=== PATIENT | male | born 1955 | race Caucasian/White ===

== ENCOUNTER 2017-12-07 08:40 | Day surgery (SDC) | payer MEDICARE ==
[~2017-12-07] VITALS: Ht 177.8 cm; Wt 132.9 kg
[~2017-12-07 08:40] MED LIST: ALLO100 PO; AMLO10 PO; ATOR20TA PO; B COTAB3 PO; BACL20TA PO; CLOP75 PO; CORE25TA PO; CYCL-36 PO; DOXA1 PO; FISH1200 PO; FURO1TAB93 PO; GLIM1 PO; HYDR-3533 PO; LOSA100T PO; NORC10TA2 PO; NOVONP2 SQ; NOVORP2 SQ; PRED5TAB PO; PRIL40CA PO; REST30CA PO; SM F PO; VITA-13 PO
[2017-12-07] MEDS ORDERED: IOHEXOL 350 MG/ML 100 ML BTL (for Cath Lab) OTHER ONE (08:41)
[2017-12-07] MEDS ORDERED: SODIUM CHLORIDE 0.9% FLUSH 10 ML FLUSH IV FLUSH PRN ×2 (09:30)
[2017-12-07 09:58] VITALS: BP 188/82; PULSE 78; RESP 18; TEMP 98.1; O2SAT 94
[2017-12-07] MEDS ORDERED: PLAV75TA29 PO (10:27)
[2017-12-07] MEDS ORDERED: LANTUS2P SQ (10:27)
[2017-12-07] MEDS ORDERED: CORE25TA PO (10:27)
[2017-12-07] MEDS ORDERED: FURO20TA PO (10:27)
[2017-12-07] MEDS ORDERED: DOXA1TAB43 PO (10:27)
[2017-12-07] MEDS ORDERED: NITR0.4S SL (10:27)
[2017-12-07] MEDS ORDERED: GLYB5TAB3 PO (10:27)
[2017-12-07] MEDS ORDERED: ATOR40TA16 PO (10:27)
[2017-12-07 10:37] LABS: BASOPHIL # 0.1 TH/MM3 (0-0.2); BASOPHIL % 0.8 % (0.0-2.0); EOSINOPHIL # 0.9 TH/MM3 (0-0.4); HEMATOCRIT 46.8 % (39.0-51.0); HEMOGLOBIN 15.2 GM/DL (13.0-17.0); LYMPH % 15.8 % (9.0-44.0); MEAN CELL VOLUME 83.9 FL (80.0-100.0); MEAN CORPUSCULAR HEMOGLOBIN 27.3 PG (27.0-34.0); MEAN CORPUSCULAR HGB CONC 32.6 % (32.0-36.0); MEAN PLATELET VOLUME 10.8 FL (7.0-11.0); MONO % 8.3 % (0.0-8.0); MONOCYTE # 0.6 TH/MM3 (0-0.9); NEUT % 61.1 % (16.0-70.0); PLATELET COUNT 76 TH/MM3 (150-450); RED BLOOD COUNT 5.58 MIL/MM3 (4.50-5.90); RED CELL DISTRIBUTION WIDTH 17.5 % (11.6-17.2); WHITE BLOOD COUNT 6.6 TH/MM3 (4.0-11.0)
[2017-12-07 10:44] LABS: PROTHROMBIN TIME - PATIENT 10.3 SEC (9.8-11.6)
[2017-12-07 10:58] LABS: BICARBONATE 30.4 MEQ/L (21.0-32.0); CALCIUM 9.6 MG/DL (8.5-10.1); CREATININE 1.51 MG/DL (0.60-1.30)
[2017-12-07] MEDS ORDERED: HEPARIN SODIUM - IV 10,000 UNITS/10 ML VIAL ONE (11:17)
[2017-12-07] MEDS ORDERED: NITROGLYCERIN INJ 5 ML ONE (11:17)
[2017-12-07] MEDS ORDERED: MIDAZOLAM HCL 2 MG/2 ML VIAL ONE (11:17)
[2017-12-07] MEDS ORDERED: HEPARIN-NS/PF FLUSH BAG 2,000 ML IV FLUSH ONE (11:17)
--- NOTE | 2017-12-07 11:49 | EKG ---
Date Performed: 12/07/2017 Time Performed: 10:34:42 PTAGE: 62 years EKG: Sinus rhythm . Inferior infarct - age undetermined Abnormal ECG PREVIOUS TRACING : 11/19/2015 19.51 DOCTOR: Julio Rosenberg Interpretating Date/Time 12/07/2017 11:48:53
[2017-12-07] MEDS ORDERED: ASPIRIN 81 MG CHEW TAB ONE (12:47)
[2017-12-07] MEDS ORDERED: CLOPIDOGREL 75 MG TAB ONE (12:47)
[2017-12-07] MEDS ORDERED: SODIUM CHLOR 0.9% 1000 ML INJ 1,000 ML IV SCH (13:03)
[2017-12-07] MEDS ORDERED: MISC INFORMATION XX ONE (13:15)
[2017-12-07] MEDS ORDERED: MORPHINE SULFATE 4 MG/ML INJ IV PUSH PRN (13:15)
[2017-12-07] MEDS ORDERED: oxyCODONE/ACETAMINOPHEN 5 MG/325 MG TAB PO PRN (13:15)
[2017-12-07] MEDS ORDERED: ACETAMINOPHEN 325 MG TAB PO PRN (13:15)
[2017-12-07 20:00] VITALS: BP 165/79; PULSE 83; RESP 20; TEMP 98.2; O2SAT 94
[2017-12-07] MEDS: oxyCODONE/ACETAMINOPHEN 10 MG/325 MG TAB PO PRN (20:20)
[2017-12-07 21:00] VITALS: PULSE 86
[2017-12-07] MEDS ORDERED: ATORVASTATIN 40 MG TAB PO SCH (21:00)
[2017-12-07] MEDS ORDERED: INSULIN DETEMIR 100 UNITS/ML VIAL SQ SCH (21:00)
[2017-12-07] MEDS: CARVEDILOL 12.5 MG TAB PO SCH (21:00)
[2017-12-07 21:07] VITALS: O2SAT 94
[2017-12-07] MEDS: FUROSEMIDE 20 MG TAB PO SCH (21:48)
[2017-12-07 22:00] VITALS: PULSE 86
[2017-12-07 23:00] VITALS: BP 145/72; PULSE 88; RESP 20; TEMP 98.7; O2SAT 95
[2017-12-08] VITALS (9 sets, daily range): BP systolic 150–164; BP diastolic 70–79; PULSE 74–82; RESP 18–20; TEMP 98.4–98.8; O2SAT 92–98
[2017-12-08] MEDS: oxyCODONE/ACETAMINOPHEN 10 MG/325 MG TAB PO PRN (00:39)
--- NOTE | 2017-12-08 00:49 | MA ---
cc: Can Pérez DO DATE: 12/07/2017 DATE OF PROCEDURE: 12/07/2017. PROCEDURE: Bilateral peripheral angiogram, moderate sedation 56 minutes, third order angiogram, Sherwood stent (8 x 20) to the right external iliac. PREPROCEDURE DIAGNOSES: Bilateral claudication, left heel ulcer which has since healed after skin grafting, right venous ulcer, known peripheral artery disease, abnormal ankle-brachial index ([place]). 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 MEDICATIONS: Versed 1.5 mg, fentanyl 75 mcg and heparin 7000 units, aspirin 81 mg, Plavix 75 mg. CONTRAST USED: 70 mL. FLUOROSCOPY: 7.2 minutes. MODERATE SEDATION: 56 minutes. FRAILTY SCORE: 3. ESTIMATED BLOOD LOSS: 10 mL. PROCEDURAL SUMMARY: Ellis Barakat is a pleasant 62-year-old male who sees my partner, Dr. Rice, and was found to have abnormal ABIs as well as previously having a left heel ulcer. Since being evaluated by Dr. Rice and Dr. Srinivasan, he has since undergone skin grafting of his left heel and this has since healed. He was recommended a peripheral angiogram. Risks, benefits and alternatives were explained to him and he consented to such. He was brought to the lab and prepped in the usual sterile fashion. The right femoral artery was accessed using a modified Seldinger technique and placement of a 5-[place] sheath. This was easily aspirated and flushed. A runoff was done of the right lower extremity with DSA of the distal lower extremity. A Glidewire with an Omni Flush catheter were used to cross over the bifurcation, and this was used for selective angiography of the left lower extremity using contrast runoff. DSA was done of the left distal lower extremity, and as there was some difficulty evaluating, the Omni Flush was advanced into the left SFA for better angiogram. Omni Flush and wire were removed. As there was concern for stenosis or possible dissection of the right external iliac, a J-wire was advanced up the aorta and a straight catheter was placed in the proximal portion of the iliac. This was pulled back across the iliac, showing a significant gradient of 25-30 mmHg. It was felt that this needed to be intervened on, and so a J-wire was placed back up the aorta. The 5-[place] sheath was changed out for a 6-[place] sheath. Heparin was given as an anticoagulant. A Sherwood stent (8 x 20) was placed over the lesion and inflated. This was postdilated with the stent balloon. Final angiogram shows a well-opposed stent with no perforations or dissections. Sheath was sutured in place, with a plan to remove once ACT values were appropriate. FINDINGS: Right lower extremity: Right external iliac has possible calcified stenosis with possible dissection. Distal to this, the common femoral artery and SFA have mild luminal irregularities. The popliteal artery is patent. Distally, the right posterior tibial artery is occluded at the proximal portion. The right anterior tibial has good runoff to the foot. The right peroneal artery has good runoff to the ankle. There is no collateralization to the right posterior tibial artery. Left lower extremity: Left iliac, common femoral artery and superficial femoral artery are patent, with minimal disease. Distally, the left posterior tibial artery is occluded at its origin. The left anterior tibial is a large vessel with runoff to the foot. The left peroneal artery appears to occlude in the proximal to mid portion. IMPRESSION: 1. Severe peripheral artery disease distally with 2-vessel runoff to the right foot and 1-vessel runoff to the left foot as above. 2. Right external iliac stenosis versus dissection, status post Sherwood stent (8 x 20). 3. Left heel ulcer, which has since healed after skin grafting. 4. Right lower extremity venous stasis ulcer. RECOMMENDATIONS: 1. Mr. Blade Barakat underwent peripheral angiogram and appears to have a 2-vessel runoff to the right lower extremity and 1-vessel runoff to the left lower extremity. 2. As there was significant concern for stenosis versus dissection of the right external iliac artery, he underwent intervention with a Sherwood stent (8 x 20). He will be recommended aspirin and Plavix therapy. He previously had a GI bleed, but at that time was on aspirin, Plavix and Coumadin therapy. If there is any concern for bleeding, then aspirin can be stopped and he can continue on Plavix therapy as he was on before: 3. Overall, he does have significant peripheral vascular disease distally with 1-vessel runoff to the left lower extremity. His previous left heel ulcer has since healed, and I do not believe that there is intervention possible to the left posterior tibial artery to help with blood flow to this area, as it is occluded ostially with no collateralization. 4. Due to his significant chronic kidney disease, he will be watched overnight, and if stable, in the morning discharged home for followup with Dr. Rice. Thank you for allowing me to see Ellis Barakat. If there are any questions, please do not hesitate to call. DO DEYA RobersonP/SM , 11:50 PM , 12:48 AM
[2017-12-08 05:02] LABS: AUTOMATED NEUTROPHIL # 4.2 TH/MM3 (1.8-7.7); BASOPHIL # 0.1 TH/MM3 (0-0.2); BASOPHIL % 0.9 % (0.0-2.0); EOSINOPHIL # 0.8 TH/MM3 (0-0.4); HEMATOCRIT 45.8 % (39.0-51.0); LYMPH % 17.5 % (9.0-44.0); LYMPHOCYTE # 1.2 TH/MM3 (1.0-4.8); MEAN CELL VOLUME 83.9 FL (80.0-100.0); MEAN CORPUSCULAR HEMOGLOBIN 27.5 PG (27.0-34.0); MEAN CORPUSCULAR HGB CONC 32.8 % (32.0-36.0); MONOCYTE # 0.6 TH/MM3 (0-0.9); NEUT % 60.6 % (16.0-70.0); PLATELET COUNT 74 TH/MM3 (150-450); RED BLOOD COUNT 5.46 MIL/MM3 (4.50-5.90); RED CELL DISTRIBUTION WIDTH 18.1 % (11.6-17.2); WHITE BLOOD COUNT 6.9 TH/MM3 (4.0-11.0)
[2017-12-08 05:11] LABS: BICARBONATE 32.1 MEQ/L (21.0-32.0); CALCIUM 8.9 MG/DL (8.5-10.1); CREATININE 1.56 MG/DL (0.60-1.30)
[2017-12-08] MEDS ORDERED: glyBURIDE 5 MG TAB PO SCH (09:00)
[2017-12-08] MEDS ORDERED: CLOPIDOGREL 75 MG TAB PO SCH (09:00)
[2017-12-08] MEDS ORDERED: ASPIRIN 81 MG CHEW TAB PO SCH (09:00)
[2017-12-08] MEDS ORDERED: DOXAZOSIN MESYLATE 4 MG TAB PO SCH (09:00)
[2017-12-08] MEDS: CARVEDILOL 12.5 MG TAB PO SCH (09:58)
[2017-12-08] MEDS: FUROSEMIDE 20 MG TAB PO SCH (09:59)
[2017-12-08] MEDS ORDERED: ASPI81 PO (12:03)
--- NOTE | 2017-12-08 17:57 | PD.CARD.PN ---
Subjective Subjective Remarks Patient was seen earlier today, late entry note Doing well, up to the chair Legs feel good, no pain Objective Vital Signs / I&O Vital Signs Date Time Temp Pulse Resp B/P (MAP) Pulse Ox O2 Delivery O2 Flow Rate FiO2 12/08/17 11:30 82 12/08/17 11:30 98.5 82 18 150/70 (96) 92 12/08/17 08:00 98.8 78 18 164/79 (107) 92 12/08/17 08:00 78 12/08/17 06:00 75 12/08/17 05:00 76 12/08/17 04:00 74 12/08/17 03:00 79 12/08/17 03:00 98.4 79 20 156/74 (101) 98 12/08/17 02:00 82 12/08/17 01:39 20 12/08/17 01:00 82 12/08/17 00:00 82 12/07/17 23:00 88 12/07/17 23:00 98.7 88 20 145/72 (96) 95 12/07/17 22:00 86 12/07/17 21:07 94 Nasal Cannula 2.00 12/07/17 21:00 86 12/07/17 20:00 83 12/07/17 20:00 98.2 83 20 165/79 (107) 94 12/07/17 20:00 83 I/O 12/07/17 12/07/17 12/07/17 12/08/17 12/08/17 12/08/17 06:59 14:59 22:59 06:59 14:59 22:59 Intake Total 240 ml Output Total 1000 ml Balance -760 ml Intake Oral 240 ml Output Urine Total 1000 ml Physical Exam GENERAL: NAD, AAOx3 SKIN: Warm and dry. HEAD: Atraumatic. Normocephalic. EYES: Pupils equal and round. No scleral icterus. No injection or drainage. ENT: No nasal bleeding or discharge. Mucous membranes pink and moist. NECK: Trachea midline. No JVD. CARDIOVASCULAR: Regular rate and rhythm. RESPIRATORY: No accessory muscle use. Clear to auscultation. Breath sounds equal bilaterally. GASTROINTESTINAL: Abdomen soft, non-tender, nondistended. Hepatic and splenic margins not palpable. MUSCULOSKELETAL: Extremities without clubbing, cyanosis, or edema. No obvious deformities. Right femoral no hematoma, distal pulses diminished but palpable NEUROLOGICAL: Awake and alert. No obvious cranial nerve deficits. Motor grossly within normal limits. Five out of 5 muscle strength in the arms and legs. Normal speech. PSYCHIATRIC: Appropriate mood and affect; insight and judgment normal. Laboratory Laboratory Tests Test 12/08/17 04:21 White Blood Count 6.9 TH/MM3 Red Blood Count 5.46 MIL/MM3 Hemoglobin 15.0 GM/DL Hematocrit 45.8 % Mean Corpuscular Volume 83.9 FL Mean Corpuscular Hemoglobin 27.5 PG Mean Corpuscular Hemoglobin Concent 32.8 % Red Cell Distribution Width 18.1 % Platelet Count 74 TH/MM3 Mean Platelet Volume 10.0 FL Neutrophils (%) (Auto) 60.6 % Lymphocytes (%) (Auto) 17.5 % Monocytes (%) (Auto) 9.0 % Eosinophils (%) (Auto) 12.0 % Basophils (%) (Auto) 0.9 % Neutrophils # (Auto) 4.2 TH/MM3 Lymphocytes # (Auto) 1.2 TH/MM3 Monocytes # (Auto) 0.6 TH/MM3 Eosinophils # (Auto) 0.8 TH/MM3 Basophils # (Auto) 0.1 TH/MM3 CBC Comment AUTO DIFF Differential Comment AUTO DIFF CONFIRMED Platelet Estimate LOW Platelet Morphology Comment NORMAL Blood Urea Nitrogen 36 MG/DL Creatinine 1.56 MG/DL Random Glucose 248 MG/DL Calcium Level 8.9 MG/DL Sodium Level 142 MEQ/L Potassium Level 4.2 MEQ/L Chloride Level 104 MEQ/L Carbon Dioxide Level 32.1 MEQ/L Anion Gap 6 MEQ/L Estimat Glomerular Filtration Rate 45 ML/MIN Assessment and Plan Problem List: (1) CKD (chronic kidney disease) ICD Codes: N18.9 - Chronic kidney disease, unspecified (2) PAD (peripheral artery disease) ICD Codes: I73.9 - Peripheral vascular disease, unspecified (3) Foot ulcer ICD Codes: L97.509 - Non-pressure chronic ulcer of other part of unspecified foot with unspecified severity Status: Acute (4) Back pain ICD Codes: M54.9 - Dorsalgia, unspecified Status: Acute Assessment and Plan 1) PAD 1 vessel run off to the left foot, but ulcer heeled with skin grafting, no intervention noted for distal vessels 2 vessel run off to the right foot Right external iliac with stenosis, possible dissection s/p [place] (8x20) 2) Con't ASA/Plavix 3) Cardiovascularly stable for discharge Follow up with Can Alexander DO December 08, 2017 17:57
== END 2017-12-08 13:10 | disposition home or self-care (01) ==
LOC: HDOC 08:40 → HDIC 08:41 → HCPC 19:52 → HDOC 12-08 13:10
PROVIDERS: ATTEND Nuclear Medicine Nuclear Cardiology
DX: I73.9 Peripheral vascular disease, unspecified (principal); N18.9 Chronic kidney disease, unspecified; Z79.01 Long term (current) use of anticoagulants; R94.31 Abnormal electrocardiogram [ECG] [EKG]; L97.509 Non-pressure chronic ulcer of other part of unspecified foot with unspecified severity; M54.9 Dorsalgia, unspecified
CPT/HCPCS: 36247; 37221; 75716; 80048; 85002; 85025; 85610; 93005; 99152; 99153; C1725; C1769; C1893; J1644; J2250; J2270; J3010; J7030; Q9967